=== PATIENT | male | born 1990 | race Caucasian/White ===

== ENCOUNTER 2018-07-04 12:50 | Emergency (ER) | payer SELFPAY ==
[~2018-07-04] VITALS: Ht 182.9 cm; Wt 72.6 kg
--- NOTE | 2018-07-04 13:06 | NUR ---
Patient came out of room saying he was going to tell his skip load driver to wait for him. But the skip load driver had left already. Patient left saying he was going to wait for his skip load driver outside. Patient was told to wait for his skip load driver inside. But refused. Patient was told we could call his skip load driver but refused to wait inside. No IV was inserted on this visit.
[2018-07-04] MEDS ORDERED: OLANZAPINE 5 MG TABLET PO ONE (13:15)
== END 2018-07-04 13:21 | disposition left against medical advice (07) ==
LOC: ER 12:50
DX: F22 Delusional disorders (principal); F15.90 Other stimulant use, unspecified, uncomplicated
CPT/HCPCS: 99281; A4663